=== PATIENT | female | born 1995 ===

== ENCOUNTER → 2016-09-17 | Outpatient (CLI) | payer BC ==
[~2016-09-17] MED LIST: AZIT500T26 PO; ETONMIS VAGRING; FLUO10CA48 PO; FLUT0.15 NAE; OXYC-57 PO; SULF800T23 PO; [UNRECOGNIZED DRUG - REMARK]
[2016-09-21 01:34] LABS: CHLAMYDIA TRACH RNA*** DETECTED (NOT DETECTED); GC (NEIS GONORRHOEAE)RNA** NOT DETECTED (NOT DETECTED)
== END | disposition home or self-care (01) ==
LOC: C.LABSPEC 17:36
PROVIDERS: ATTEND Obstetrics & Gynecology
DX: Z01.419 Encounter for gynecological examination (general) (routine) without abnormal findings (principal)

== ENCOUNTER → 2016-09-17 | Outpatient (CLI) | payer BC | END | disposition home or self-care (01) | LOC: C.PAPS 11:02 | PROVIDERS: ATTEND Obstetrics & Gynecology | DX: Z01.419 Encounter for gynecological examination (general) (routine) without abnormal findings (principal) ==

== ENCOUNTER 2016-09-22 07:02 | Emergency (ER) | payer BC ==
[~2016-09-22] VITALS: Ht 167.6 cm; Wt 100.0 kg
[2016-09-22 07:10] VITALS: Ht 167.6 cm; Wt 100.0 kg
[2016-09-22] MEDS ORDERED: FLUT0.15 NAE (07:19)
[2016-09-22] MEDS ORDERED: FLUO10CA48 PO (07:24)
[2016-09-22] MEDS ORDERED: ETONMIS VAGRING (07:24)
[2016-09-22] MEDS ORDERED: [UNRECOGNIZED DRUG - REMARK] (07:24)
[2016-09-22 07:43] LABS: URINE APPEARANCE CLOUDY (CLEAR); URINE BILIRUBIN NEG (NEG); URINE COLOR YELLOW; URINE EPITHELIAL CELL AUTO >30 /lpf (0-5); URINE NITRITE NEG (NEG); UROBILINOGEN NEG (NEG)
[2016-09-22 07:56] LABS: BASO % 0.3 %; BASO ABS # 0.02 K/uL (0-0.2); COMPLETE YES; EOS % 0.5 %; HEMATOCRIT 36.2 % (37-47); IG% 0.3 %; LYMPH % 19.8 %; LYMPH ABS # 1.58 K/uL (1.2-3.4); MEAN CELL VOLUME 95.8 fL (80-100); MEAN CORPUSCULAR HEMOGLOBIN 32.5 pg (25-34); MEAN PLATELET VOLUME 9.7 fL (7.4-10.4); MONO % 2.8 %; NEUT % 76.3 %; PLATELET COUNT 201 K/uL (130-400); RED BLOOD COUNT 3.78 M/uL (4.2-5.4); WHITE BLOOD COUNT 7.96 K/uL (4.8-10.8)
[2016-09-22 07:57] LABS: MANUAL MICROSCOPIC REQUIRED? NO; REVIEW REQ? YES
[2016-09-22 08:13] LABS: BUN/CREATININE RATIO 21.1 (10-20); CREATININE 0.72 mg/dl (0.60-1.20); POTASSIUM 3.5 mmol/L (3.5-5.1)
[2016-09-22] MEDS ORDERED: ONDANSETRON INJ 2 MG/ML 2 ML VIAL IV STA (08:23)
[2016-09-22] MEDS ORDERED: CEFTRIAXONE SOD INJ 1 GM ADDVIAL IV STA (08:23)
[2016-09-22] MEDS ORDERED: SODIUM CHLORIDE 0.9% 1000ML 1,000 ML IV STA (08:23)
[2016-09-22] MEDS ORDERED: KETOROLAC TROMETHAMINE 30 MG/ML VIAL IV STA (08:23)
[2016-09-22] MEDS ORDERED: HYDROmorphone INJ 1 MG/ML SYR IV STA ×2 (08:23→09:46)
--- NOTE | 2016-09-22 08:23 | EMERGENCY ROOM VISIT NOTE ---
History Report prepared by Kaylene: Rey Lilly Under the Supervision of: Dr. Viktor Kent M.D. First contact with patient: 07:05 Chief Complaint: ABDOMINAL PAIN Stated Complaint: ABDOMINAL PAINS History of Present Illness The patient is a 21 year old female who presents to the Emergency Room with complaints of worsening sharp abdominal pain starting around 0000 this morning. The patient additionally complains of back pain. The patient states that around 0500 she got up to go to the bathroom and she vomited. The patient additionally sates that she has been shaking. The patient denies any urinary symptoms. She additionally denies any abdominal surgery. Source of History: patient Onset: 0000 Position: abdomen Quality: sharp Timing: worsening Associated Symptoms: + vomiting, No urinary symptoms Note: Associated symptoms: Shaking Review of Systems See HPI for pertinent positives & negatives. A total of 10 systems reviewed and were otherwise negative. Past Medical & Surgical Medical Problems: (1) No Known Active Medical Problems Family History Cancer Diabetes mellitus Seizures Social History Smoking Status: Never Smoker Alcohol Use: occasionally Marital Status: single Occupation Status: employed Current/Historical Medications Scheduled Azithromycin (Zithromax), 1,000 MG PO UD Etonogestrel/Ethinyl Estradiol (Nuvaring), 1 EA VAGRING MONTHLY Fluoxetine (Prozac), 10 MG PO DAILY Fluticasone Propionate (Nasal) (Flonase Allergy Relief), 2 SPRAYS [place] DAILY Sulfa/Trimethoprim (Bactrim Ds 800MG/160MG), 1 TAB PO BID Scheduled PRN Oxycodone/Acetaminophen 5MG/325MG (Percocet 5MG/325MG), 1-2 TAB PO Q4H PRN for Pain Allergies Coded Allergies: No Known Allergies (Unverified , 09/22/16) Physical Exam Vital Signs Date Time Temp Pulse Resp B/P Pulse Ox O2 Delivery O2 Flow Rate FiO2 09/22/16 10:02 36.7 85 18 114/66 98 09/22/16 09:38 85 18 114/66 98 Room Air 09/22/16 09:01 85 18 115/78 99 Room Air 09/22/16 07:38 72 09/22/16 07:10 36.4 89 18 134/78 100 Room Air Physical Exam GENERAL: Patient is a healthy-appearing well-nourished HEAD: Normocephalic atraumatic EYES: Ocular movements intact pupils equal and react to light OROPHARYNX mucous membranes are moist no exudates present no erythema or edema present NECK: Supple no nuchal rigidity CHEST: Good equal expansion LUNGS: Clear and equal to auscultation CARDIAC: Normal S1 and S2 ABDOMEN: Tender in the right upper quadrant. Soft no guarding BACK: No CVA tenderness EXTREMITIES: No pain upon palpation normal muscle strength in all groups no clubbing cyanosis or edema NEURO: Patient is following commands is answering questions appropriately. Alert and oriented x3 Cranial Nerves 2-12 grossly intact Medical Decision & Procedures ER Provider Diagnostic Interpretation: CT results as stated below per my review and radiologist interpretation: ABDOMEN AND PELVIS CT WITHOUT CONTRAST CT DOSE: 509.31 mGy.cm HISTORY: Right upper quadrant abdominal pain. Bilateral flank pain. TECHNIQUE: Multiaxial CT images of the abdomen and pelvis were performed without the use of intravenous and oral contrast according to the standard department stone protocol. COMPARISON STUDY: None. FINDINGS: Trace bilateral pleural effusions. Mild body wall and mesenteric edema. The unenhanced liver, gallbladder, pancreas, and adrenal glands are unremarkable. No renal stones or hydronephrosis. No bowel wall thickening or obstruction. The pelvic organs are unremarkable. No suspicious lytic or blastic osseous lesions. There is appendix fills with gas proximally. The tip of the appendix is slightly bulbous and measures 7 mm. However, there is no periappendiceal fat stranding to suggest acute appendicitis. Trace pelvic free fluid. This is likely physiologic. Suboptimal evaluation for bowel pathology. A single calcification seen at the splenic dome. Mild periportal edema which may be due to overhydration. IMPRESSION: 1. No renal stones or hydronephrosis. 2. Suboptimal evaluation for bowel pathology due to the lack of intravenous and oral contrast. However, there is no definite bowel wall thickening or obstruction. 3. Trace bilateral pleural effusions, mild body wall edema, mild mesenteric edema, mild periportal edema and trace pelvic free fluid. This could be due to overhydration. 4. The tip of the appendix is slightly bulbous measuring up to 7 mm. However, there is no periappendiceal fat stranding to suggest acute appendicitis. Electronically signed by: David Tam M.D. 09/22/2016 9:32 AM Dictated Date/Time: 09/22/2016 9:23 AM Laboratory Results 09/22/16 07:35 Red Blood Count 3.78, Mean Corpuscular Volume 95.8, Mean Corpuscular Hemoglobin 32.5, Mean Corpuscular Hemoglobin Concent 34.0, Mean Platelet Volume 9.7, Neutrophils (%) (Auto) 76.3, Lymphocytes (%) (Auto) 19.8, Monocytes (%) (Auto) 2.8, Eosinophils (%) (Auto) 0.5, Basophils (%) (Auto) 0.3, Neutrophils # (Auto) 6.08, Lymphocytes # (Auto) 1.58, Monocytes # (Auto) 0.22, Eosinophils # (Auto) 0.04, Basophils # (Auto) 0.02 09/22/16 07:35 Test 09/22/16 07:20 09/22/16 07:35 Urine Color YELLOW Urine Appearance CLOUDY (CLEAR) Urine pH 5.0 (4.5-7.5) Urine Specific [place] 1.030 (1.000-1.030) Urine Protein NEG (NEG) Urine Glucose (UA) NEG (NEG) Urine Ketones NEG (NEG) Urine Occult Blood 3+ (NEG) Urine Nitrite NEG (NEG) Urine Bilirubin NEG (NEG) Urine Urobilinogen NEG (NEG) Urine Leukocyte Esterase NEG (NEG) Urine WBC (Auto) 10-30 /hpf (0-5) Urine RBC (Auto) 5-10 /hpf (0-4) Urine Hyaline Casts (Auto) 10-30 /lpf (0-5) Urine Epithelial Cells (Auto) >30 /lpf (0-5) Urine Bacteria (Auto) 2+ (NEG) Urine Renal Epithelial Cells /lpf (0-5) Urine Test NEG (NEG) White Blood Count 7.96 K/uL (4.8-10.8) Red Blood Count 3.78 M/uL (4.2-5.4) Hemoglobin 12.3 g/dL (12.0-16.0) Hematocrit 36.2 % (37-47) Mean Corpuscular Volume 95.8 fL (80-100) Mean Corpuscular Hemoglobin 32.5 pg (25-34) Mean Corpuscular Hemoglobin Concent 34.0 g/dl (32-36) Platelet Count 201 K/uL (130-400) Mean Platelet Volume 9.7 fL (7.4-10.4) Neutrophils (%) (Auto) 76.3 % Lymphocytes (%) (Auto) 19.8 % Monocytes (%) (Auto) 2.8 % Eosinophils (%) (Auto) 0.5 % Basophils (%) (Auto) 0.3 % Neutrophils # (Auto) 6.08 K/uL (1.4-6.5) Lymphocytes # (Auto) 1.58 K/uL (1.2-3.4) Monocytes # (Auto) 0.22 K/uL (0.11-0.59) Eosinophils # (Auto) 0.04 K/uL (0-0.5) Basophils # (Auto) 0.02 K/uL (0-0.2) RDW Standard Deviation 46.7 fL (36.4-46.3) RDW Coefficient of Variation 13.5 % (11.5-14.5) Immature Granulocyte % (Auto) 0.3 % Immature Granulocyte # (Auto) 0.02 K/uL (0.00-0.02) Anion Gap 9.0 mmol/L (3-11) Est Creatinine Clear Calc Drug Dose 147.4 ml/min Estimated GFR () 138.7 Estimated GFR (Non- 119.7 BUN/Creatinine Ratio 21.1 (10-20) Calcium Level 8.0 mg/dl (8.5-10.1) Total Bilirubin 0.5 mg/dl (0.2-1) Direct Bilirubin 0.1 mg/dl (0-0.2) Aspartate Amino Transf (AST/SGOT) 92 U/L (15-37) Alanine Aminotransferase (ALT/SGPT) 50 U/L (12-78) Alkaline Phosphatase 58 U/L (45-117) Total Protein 6.3 gm/dl (6.4-8.2) Albumin 3.3 gm/dl (3.4-5.0) Lipase 91 U/L (73-393) Labs reviewed by ED physician. Medications Administered Medications (Trade) Dose Ordered Sig/Roberto Route Start Time Stop Time Status Last Admin Dose Admin Ceftriaxone Sodium (Rocephin Inj) 1 gm NOW STAT IV 09/22/16 08:23 09/22/16 08:25 DC 09/22/16 09:00 1 GM Hydromorphone HCl (Dilaudid Inj) 1 mg NOW STAT IV 09/22/16 08:23 09/22/16 08:25 DC 09/22/16 08:59 1 MG Ondansetron HCl (Zofran Inj) 4 mg NOW STAT IV 09/22/16 08:23 09/22/16 08:25 DC 09/22/16 08:59 4 MG Ketorolac Tromethamine 30 mg 30 mg NOW STAT IV 09/22/16 08:23 09/22/16 08:25 DC 09/22/16 08:59 30 MG Sodium Chloride (Nss 1000ml) 1,000 ml @ 999 mls/hr Q1H1M STAT IV 09/22/16 08:23 09/22/16 09:23 DC 09/22/16 08:59 999 MLS/HR Hydromorphone HCl (Dilaudid Inj) 1 mg NOW STAT IV 09/22/16 09:46 09/22/16 09:48 DC 09/22/16 10:02 1 MG Metoclopramide HCl (Reglan Inj) 10 mg NOW STAT IV 09/22/16 09:46 09/22/16 09:48 DC 09/22/16 10:02 10 MG Magnesium Citrate (Citrate Of Magnesia Soln) 296 ml NOW STAT PO 09/22/16 09:46 09/22/16 09:48 DC 09/22/16 10:02 296 ML ED Course 0707: Past medical records reviewed. The patient was evaluated in room B5. A complete history and physical examination was performed. 0823: Sodium Chloride 1000 ml @ 999 mls/hr IV, Toradol Inj 30mg IV, Zofran Inj 4mg IV, Dilaudid Inj 1mg IV, Rocephin Inj 1mg IV 0946: Magnesium Citrate 296ml PO, Reglan Inj 10mg IV, Dilaudid Inj 1mg IV 0950: Upon reexamination the patient is feeling better. I discussed results and treatment plan with the patient. She verbalizes agreement and understanding. The patient is ready for discharge. Medical Decision Differential diagnosis: Etiologies such as appendicitis, diverticulitis, PUD, biliary pathology, UTI, pancreatitis, obstruction, mesenteric ischemia, aortic pathology, infections, inflammatory bowel disease, renal colic, as well as others were entertained. This is a 21-year-old female who presents emergency department complaining of diffuse abdominal pain. I will note the serial abdominal examinations were performed on the patient emerged department and at no time did she exhibit abdominal tenderness. In addition the patient has no rebound no guarding in the right lower quadrant. She was sent for CAT scan of the abdomen pelvis and does have a large amount of white blood cells in her urine. Based on his findings the patient was started on Rocephin, Toradol Dilaudid. Repeat examination revealed improvement patient's symptoms. I do believe that the patient is well enough to be discharged home however I recommended that the patient be placed on Bactrim and perform a MiraLAX cleanout. Patient was in agreement with the treatment plan. Impression Primary Impression: Abdominal pain Additional Impressions: Constipation UTI (urinary tract infection) Scribe Attestation The scribe's documentation has been prepared under my direction and personally reviewed by me in its entirety. I confirm that the note above accurately reflects all work, treatment, procedures, and medical decision making performed by me. Departure Information Dispostion Home / Self-Care Prescriptions Oxycodone/Acetaminophen 5MG/325MG (PERCOCET 5MG/325MG) Tab 1-2 TAB PO Q4H Y for Pain, #14 TAB Prov: Viktor Kent MD 09/22/16 Sulfa/Trimethoprim (Bactrim Ds 800MG/160MG) Tab 1 TAB PO BID for 7 Days, #14 TAB Prov: Viktor Kent MD 09/22/16 Referrals No Doctor, Assigned (PCP) Forms HOME CARE DOCUMENTATION FORM, IMPORTANT VISIT INFORMATION, School Instructions, Work Instructions Patient Instructions Constipation, ED Abd Pain Unkn Cause Fem, ED UTI Cystitis Female, [facility] Additional Instructions Take 1/2 bottle of Mag Citrate Repeat second half in six hours You received narcotic or benzodiazepene medication while in the emergency room today. Do not drive, operate heavy machinery, or drink alcohol under the influence of this medication. Take 600 mg Ibuprofen every 6 hours Take Percocet for breakthrough pain Culture results are usually available in approx 48 hours You have been examined and treated today on an emergency basis only. This is not a substitute for, or an effort to provide, complete comprehensive medical care. It is impossible to recognize and treat all injuries or illnesses in a single emergency department visit. It is therefore important that you follow up closely with your pcp. Call as soon as possible for an appointment. Thank you for your time and consideration. I look forward to speaking with you again soon. Please don't hesitate to call us if you have any questions. Problem Qualifiers Primary Impression: Abdominal pain Abdominal location: generalized Qualified Codes: R10.84 - Generalized abdominal pain Additional Impressions: Constipation Constipation type: unspecified constipation type Qualified Codes: K59.00 - Constipation, unspecified UTI (urinary tract infection) Urinary tract infection type: acute cystitis Hematuria presence: with hematuria Qualified Codes: N30.01 - Acute cystitis with hematuria
[2016-09-22] MEDS ORDERED: AZIT500T26 PO (09:11)
--- NOTE | 2016-09-22 09:34 | DIAGNOSTIC IMAGING REPORT ---
ABDOMEN AND PELVIS CT WITHOUT CONTRAST CT DOSE: 509.31 mGy.cm HISTORY: Right upper quadrant abdominal pain. Bilateral flank pain. TECHNIQUE: Multiaxial CT images of the abdomen and pelvis were performed without the use of intravenous and oral contrast according to the standard department stone protocol. COMPARISON STUDY: None. FINDINGS: Trace bilateral pleural effusions. Mild body wall and mesenteric edema. The unenhanced liver, gallbladder, pancreas, and adrenal glands are unremarkable. No renal stones or hydronephrosis. No bowel wall thickening or obstruction. The pelvic organs are unremarkable. No suspicious lytic or blastic osseous lesions. There is appendix fills with gas proximally. The tip of the appendix is slightly bulbous and measures 7 mm. However, there is no periappendiceal fat stranding to suggest acute appendicitis. Trace pelvic free fluid. This is likely physiologic. Suboptimal evaluation for bowel pathology. A single calcification seen at the splenic dome. Mild periportal edema which may be due to overhydration. IMPRESSION: 1. No renal stones or hydronephrosis. 2. Suboptimal evaluation for bowel pathology due to the lack of intravenous and oral contrast. However, there is no definite bowel wall thickening or obstruction. 3. Trace bilateral pleural effusions, mild body wall edema, mild mesenteric edema, mild periportal edema and trace pelvic free fluid. This could be due to overhydration. 4. The tip of the appendix is slightly bulbous measuring up to 7 mm. However, there is no periappendiceal fat stranding to suggest acute appendicitis. Electronically signed by: David Tam M.D. 09/22/2016 9:32 AM Dictated Date/Time: 09/22/2016 9:23 AM
[2016-09-22] MEDS ORDERED: METOCLOPRAMIDE HCL INJ 5 MG/ML 2 ML VIAL IV STA (09:46)
[2016-09-22] MEDS ORDERED: MAGNESIUM CITRATE 296 ML/BTL PO STA (09:46)
[2016-09-22] MEDS ORDERED: OXYC-57 PO (09:51)
[2016-09-22] MEDS ORDERED: SULF800T23 PO (09:51)
[2016-09-22 10:02] VITALS: BP 114/66; PULSE 85; TEMP 36.7; O2SAT 98
== END 2016-09-22 10:04 | disposition home or self-care (01) ==
LOC: EDBD 07:02 → C.EDB 07:04
DX: R10.11 Right upper quadrant pain (principal); K59.00 Constipation, unspecified; N39.0 Urinary tract infection, site not specified; Z79.899 Other long term (current) drug therapy; Z80.9 Family history of malignant neoplasm, unspecified; Z83.3 Family history of diabetes mellitus; Z82.0 Family history of epilepsy and other diseases of the nervous system